=== PATIENT | female | born 1970 | race African-American/Black ===

== ENCOUNTER 2019-06-08 10:58 | Emergency (ER) | payer OTHER ==
[~2019-06-08] VITALS: Ht 167.6 cm; Wt 102.1 kg
[~2019-06-08 10:58] MED LIST: BENICAR HCT 401 EACH ORAL; FLONASE1 SPRAYS NASAL; PROMETHAZINE-D118 ML ORAL; ZITHROMAX250 MG ORAL
[2019-06-08 12:30] VITALS: BP 143/96
--- NOTE | 2019-06-08 12:47 | Emergency Room Report ---
History of Present Illness General Chief Complaint: General Complaint Source: Patient Present Illness HPI 48-year-old female presents to the emergency department complaining of 10 out of 10 severity sensitive sores on her lips with lip swelling x1 week. Patient reports she had one lesion a week ago it resolved but then several more came and she feels that her symptoms are worse this time. She denies fevers or chills denies history of STI or immune compromise. She reports she was previously on high blood pressure medication but stopped several years ago. Pt. denies fevers, chills or swollen tender lymph nodes. Denies lesions/rashes elsewhere on the body. Denies new medications or body washes or creams. Denies swelling of the lips, tongue , throat or airway. Denies wheezing, or shortness of breath. Denies recent travel, recent illness or ill contacts. denies blisters, oral lesions, or sloughing of the skin Allergies: Coded Allergies: No Known Allergies (Unverified , 06/16/14) Patient History Limited by: age Past Medical History: none Past Surgical History: none Pertinent Family History: none Last Menstrual Period: HYSTERECTOMY Now: No Reviewed Nursing Documentation: PMH: Agreed; PSxH: Agreed Nursing Documentation-PMH Past Medical History: No History, Except For Hx Cardiac Problems: No Hx Hypertension: Yes Hx Pacemaker: No Hx Asthma: No Hx COPD: No Hx Diabetes: No Hx Cancer: No Hx Gastrointestinal Problems: No Hx Dialysis: No Hx Neurological Problems: No Hx Cerebrovascular Accident: No Hx Seizures: No Review of Systems All Other Systems: negative except mentioned in HPI Physical Exam Vital Signs Date Time Temp Pulse Resp B/P (MAP) Pulse Ox O2 Delivery O2 Flow Rate FiO2 06/08/19 11:00 97.9 73 16 143/96 (112) 93 Room Air Sp02 EP Interpretation: reviewed, normal General Appearance: no apparent distress, alert, GCS 15, non-toxic Head: normocephalic, atraumatic Eyes: bilateral eye normal inspection, bilateral eye PERRL, bilateral eye other - no rash involvement ENT: hearing grossly normal, no angioedema, normal voice, uvula midline, moist mucus membranes, other - mild swelling on the lower lip associated with vessicular lesions. No inner oral mucosal involvement. No swelling of the tongue. no stridor. Neck: full range of motion Respiratory: lungs clear, normal breath sounds, no wheezing, speaking full sentences Cardiovascular #1: regular rate, rhythm Musculoskeletal: normal range of motion, gait/station normal, non-tender Neurologic: alert, motor strength/tone normal, oriented x3, sensory intact, responsive, speech normal Psychiatric: judgement/insight normal Skin: rash - mild swelling on the lower lip associated with vessicular lesions. No inner oral mucosal involvement. one vessicular lesion on the upper right corner. No blisters Lymphatic: no adenopathy Medical Decision Making PA Attestation Dr. Haddad Is my supervising Physician whom patient management has been discussed with. Diagnostic Impression: Primary Impression: Viral vesicles of mouth ER Course 48-year-old female presents to the emergency department complaining of 10 out of 10 severity sensitive sores on her lips with lip swelling x1 week. Patient reports she had one lesion a week ago it resolved but then several more came and she feels that her symptoms are worse this time. She denies fevers or chills denies history of STI or immune compromise. She reports she was previously on high blood pressure medication but stopped several years ago. Pt. denies fevers, chills or swollen tender lymph nodes. Denies lesions/rashes elsewhere on the body. Denies new medications or body washes or creams. Denies swelling of the lips, tongue , throat or airway. Denies wheezing, or shortness of breath. Denies recent travel, recent illness or ill contacts. denies blisters, oral lesions, or sloughing of the skin Ddx considered but are not limited to cellulitis, scabies, shingles, varicella, dermatitis, urticaria, eczema, tinea, viral exanthem, SJS Vital signs: are WNL, pt. is afebrile H&PE are most consistent with VIral Lesions, no evidence to suggest David Ruy's or impending airway compromise/ severe angioedema ORDERS: none required at this time, the diagnosis is clinical ED INTERVENTIONS: None required at this time. DISCHARGE: At this time pt. is stable for d/c to home. Will provide printed patient care instructions, and any necessary prescriptions. Care plan and follow up instructions have been discussed with the patient prior to discharge. Last Vital Signs Date Time Temp Pulse Resp B/P (MAP) Pulse Ox O2 Delivery O2 Flow Rate FiO2 06/08/19 12:30 73 16 Room Air 06/08/19 12:30 97.9 143/96 93 Status: improved Disposition: HOME, SELF-CARE Condition: Stable Scripts Benzocaine (ANBESOL) 9 Gm Gel..gram. 1 APPLIC MM QID, #9 GM Prov: Lor Higgins 06/08/19 Valacyclovir Hcl* (VALTREX*) 500 Mg Tablet 1000 MG ORAL TWICE A DAY for 7 Days, #28 TAB Prov: Lor Higgins 06/08/19 Departure Forms: Return to Work Return to Work Date: Jun 09, 2019 Work Restrictions: None Other Restrictions: please excuse for 06/08/19 Return to Full Activity: Jun 09, 2019 Patient Instructions: Oral Ulcers Additional Instructions: Take medications as directed. Follow up with a Primary Care Provider in 3-5 days, even if your symptoms have resolved. --Please review list of primary care clinics, if you do not already have a primary care provider Return sooner to ED if new symptoms occur, or current symptoms become worse. - Please note that this Emergency Department Report was dictated using [employer] layer technology software, occasionally this can lead to erroneous entry secondary to interpretation by the dictation equipment. Lor Higgins Jun 08, 2019 12:47
[2019-06-08] MEDS ORDERED: ANBESOL9 G1 MM (12:48)
[2019-06-08] MEDS ORDERED: VALACYCLOVIR500 MG ORAL (12:48)
[2019-06-08 12:57] VITALS: BP 143/96
== END 2019-06-08 13:00 | disposition home or self-care (01) ==
LOC: EMR 12:00
DX: K13.79 Other lesions of oral mucosa (principal); Z90.710 Acquired absence of both cervix and uterus; I10 Essential (primary) hypertension
CPT/HCPCS: 99282